=== PATIENT | female | born 1955 | race American Indian/Alaskan Native ===

== ENCOUNTER 2017-06-14 17:43 | Emergency (ER) | payer OTHER ==
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
--- NOTE | 2017-06-14 20:55 | Event Note ---
Date: 06/14/17 Upon entering the patient's room I introduced myself as a mid-level provider and that I will be examining and treating the patient. Patient's fiance and patient started to request for a "MD" provider during my interview. I instructed and educated what a mid-level provider is, but the patient kept interrupting me and stated she does not want to be seen by me or any other mid- level providers and just wants to be examined and treated with a "MD doctor". Dr. French and Dr. Marsh has been notified of patients needs.
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
[2017-06-14] MEDS ORDERED: TORADOL IM ONE (21:41)
[2017-06-14] MEDS ORDERED: NAPROSYN PO ONE (22:11)
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
[2017-06-15 02:14] VITALS: BP 126/76
== END 2017-06-15 02:14 | disposition home or self-care (01) ==
LOC: ED 17:43
DX: S00.93XA Contusion of unspecified part of head, initial encounter (principal); M25.559 Pain in unspecified hip; R07.89 Other chest pain; M25.512 Pain in left shoulder; V49.49XA Driver injured in collision with other motor vehicles in traffic accident, initial encounter; Y93.9 Activity, unspecified; Y92.89 Other specified places as the place of occurrence of the external cause; Y99.9 Unspecified external cause status
CPT/HCPCS: 70450; 71010; 72125; 73030; 73502; 99284; J1885

== ENCOUNTER 2017-06-15 09:59 | Emergency (ER) | payer OTHER ==
[2017-06-15 10:16] VITALS: BP 132/78
--- NOTE | 2017-06-15 10:54 | XRay Report ---
RIGHT WRIST RADIOGRAPHS INDICATION: Right wrist pain. COMPARISON: None similar. FINDINGS: AP, lateral and oblique right wrist radiographs, 4 projections demonstrate intact carpal rows and also remainder imaged bones. Few mild bony degenerative changes. Slight overlying soft tissue prominence/swelling not excluded, more so laterally. CONCLUSION: No acute right wrist bony abnormality, as described. Thank you for the opportunity to participate in this patient's care.
[2017-06-15] MEDS ORDERED: FLEXERIL PO ONE (14:58)
[2017-06-15] MEDS ORDERED: NORCO 5/325 PO ONE (14:58)
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
== END 2017-06-15 16:35 | disposition home or self-care (01) ==
LOC: ED 09:59
DX: S63.501A Unspecified sprain of right wrist, initial encounter (principal); V49.49XA Driver injured in collision with other motor vehicles in traffic accident, initial encounter; Y93.9 Activity, unspecified; Y92.9 Unspecified place or not applicable; Y99.9 Unspecified external cause status

== ENCOUNTER 2017-06-28 13:14 | Outpatient (CLI) | payer OTHER ==
--- NOTE | 2017-06-28 14:53 | XRay Report ---
RIGHT HAND, 3 views: History: Right hand pain Normal bone mineralization. There are mild diffuse osteoarthritic changes. Subtle cortical defects are identified in the proximal phalanx of the index finger and middle phalanx of the fifth digit. These could represent nondisplaced fractures. The remaining bony structures are intact. IMPRESSION: Questionable nondisplaced fractures involving digits 2 and 5. Please correlate with the patient. Mild osteoarthritis.
== END 2017-06-28 13:15 | disposition home or self-care (01) ==
LOC: XRAY 13:14
PROVIDERS: ATTEND Orthopaedic Surgery
DX: M19.041 Primary osteoarthritis, right hand (principal)